=== PATIENT | male | born 1990 | race Caucasian/White ===

== ENCOUNTER 2017-01-08 00:33 | Emergency (ER) | payer OTHER ==
[~2017-01-08] VITALS: Ht 175.3 cm; Wt 143.2 kg
[2017-01-08 00:36] VITALS: BP 148/92
[2017-01-08] MEDS ORDERED: FLUORESCEIN OPHTHALMIC 1 MG STRIP ONE (01:17)
[2017-01-08] MEDS ORDERED: PROPARACAINE OPHTH 0.5%, 15ML ONE (01:17)
== END 2017-01-08 02:09 | disposition home or self-care (01) ==
LOC: ED 02:03
DX: H16.041 Marginal corneal ulcer, right eye (principal)
CPT/HCPCS: 99283

== ENCOUNTER 2019-05-04 22:18 | Emergency (ER) | payer OTHER ==
[~2019-05-04] VITALS: Ht 177.8 cm; Wt 146.6 kg
[2019-05-04 22:27] VITALS: BP 158/96
[2019-05-04] MEDS ORDERED: PROPARACAINE OPHTH 0.5%, 15ML ONE (22:36)
[2019-05-04] MEDS ORDERED: FLUORESCEIN OPHTHALMIC 1 MG STRIP ONE (22:36)
--- NOTE | 2019-05-04 22:56 | NUR ---
DC EDUCATION PROVIDED, PT DEMONSTRATES UNDERSTANDING. PT AMBULATED STEADILY TO DC WITH MANOHAR RAMIREZ.
[2019-05-04] MEDS ORDERED: PROPARACAINE OPHTH 0.5%, 15ML EACHEYE ONE (23:00)
[2019-05-04] MEDS ORDERED: FLUORESCEIN OPHTHALMIC 1 MG STRIP OP ONE (23:00)
== END 2019-05-04 22:57 | disposition home or self-care (01) ==
LOC: ED 22:40
DX: H00.022 Hordeolum internum right lower eyelid (principal)
CPT/HCPCS: 99283

== ENCOUNTER 2020-04-21 21:24 | Emergency (ER) | payer BC, OTHER ==
[~2020-04-21] VITALS: Ht 180.3 cm; Wt 135.9 kg
[2020-04-21 21:41] VITALS: BP 149/84
--- NOTE | 2020-04-21 21:51 | NUR ---
PT AMBULATORY TO ROOM, STEADY GAIT.
== END 2020-04-21 22:13 | disposition home or self-care (01) ==
LOC: ED 21:45
DX: H00.14 Chalazion left upper eyelid (principal)
CPT/HCPCS: 99283

== ENCOUNTER 2020-04-27 15:25 | Emergency (ER) | payer BC ==
[~2020-04-27] VITALS: Ht 180.3 cm; Wt 134.9 kg
[2020-04-27 15:33] VITALS: BP 163/73
--- NOTE | 2020-04-27 15:54 | NUR ---
THIS IS A 29 YEAR OLD MALE WHO C/O OF STYE IN EYE THAT IS NOT GETTING BETTER. PT WAS SEEN HERE ON 04/21/2020
[2020-04-27] MEDS ORDERED: FLUORESCEIN OPHTHALMIC 1 MG STRIP ONE (16:07)
[2020-04-27] MEDS ORDERED: FLUORESCEIN OPHTHALMIC 1 MG STRIP EACHEYE ONE (16:30)
[2020-04-27] MEDS ORDERED: PROPARACAINE OPHTH 0.5%, 15ML EACHEYE ONE (16:30)
--- NOTE | 2020-04-27 17:03 | NUR ---
Patient/Caregiver given discharge instructions and they have confirmed that they understand the instructions. Patient ambulatory with steady gait.
== END 2020-04-27 17:05 | disposition home or self-care (01) ==
LOC: ED 16:55
DX: H00.14 Chalazion left upper eyelid (principal); H00.014 Hordeolum externum left upper eyelid
CPT/HCPCS: 99282